=== PATIENT | male | born 1945 | race Caucasian/White ===

== ENCOUNTER 2020-06-14 09:46 | Day surgery (SDC) | payer MEDICARE, BC ==
[2020-06-08 15:39] LABS: CLARITY,URINE CLEAR (Clear); COLOR,URINE YELLOW (Yellow); GLUCOSE, URINE NEGATIVE (Neg); KETONES,URINE NEGATIVE (Neg); LEUKOCYTE ESTERASE ,URINE NEGATIVE (Neg); NITRITES, URINE NEGATIVE (Neg); OCCULT BLOOD,URINE NEGATIVE (Neg); PROTEIN,URINE NEGATIVE (Neg); UROBILINOGEN,URINE 0.2 E.U/dL (0.2-1.0)
[2020-06-08 15:43] LABS: BASOPHILS # (AUTO) 0.1 X10'3 (0-0.2); BASOPHILS % (AUTO) 1.7 % (0-1); EOSINOPHILS # (AUTO) 0.2 X10'3 (0-0.9); EOSINOPHILS % (AUTO) 3.4 % (0-6); LYMPHOCYTES % (AUTO) 13.9 % (21-51); MEAN CORPUSCULAR HEMOGLOBIN 32.3 PG (27.0-31.0); MEAN CORPUSCULAR HGB CONC 33.8 g/dL (33.0-36.5); MEAN CORPUSCULAR VOLUME 95.5 FL (78-98); MEAN PLATELET VOLUME 7.3 FL (7.4-10.4); MONOCYTES # (AUTO) 0.3 X10'3 (0-0.9); MONOCYTES % (AUTO) 4.8 % (2-12); NEUTROPHILS # (AUTO) 5.5 X10'3 (1.8-7.7); NEUTROPHILS % (AUTO) 76.2 % (42-75); PRE OP HEMATOCRIT 42.9 % (42.0-52.0); PRE OP HEMOGLOBIN 14.5 g/dL (14.0-17.9); PRE OP PLATELET COUNT 232 X10'3 (140-440); RED BLOOD COUNT 4.49 X10'6 (4.70-6.10); RED CELL DISTRIBUTION WIDTH 12.9 % (11.5-14.5)
[2020-06-08 15:45] LABS: UA COLLECTION TYPE CLN CATCH MIDSTREAM
[2020-06-08 15:49] LABS: ALBUMIN 3.6 G/DL (3.4-5.0); ALBUMIN/GLOBULIN RATIO 1.1 (1.1-1.5); ALKALINE PHOSPHATASE 109 IU/L (46-116); BLOOD UREA NITROGEN 18 MG/DL (7-18); BUN/CREATININE RATIO 18.9 (5.4-32.0); CALCIUM 8.8 MG/DL (8.5-10.1); CHLORIDE 106 MMOL/L (99-107); CREATININE 0.95 MG/DL (0.60-1.10); PRE OP ALT 42 U/L (30-65); PRE OP ANION GAP 9 (8-16); PRE OP AST 25 U/L (10-37); PRE OP BILIRUB, TOTAL 0.3 MG/DL (0.0-1.0); PRE OP GLUCOSE 183 MG/DL (70-104); PRE OP POTASSIUM 3.9 MMOL/L (3.4-5.1); PRE OP SODIUM 141 MMOL/L (135-145); TOTAL CARBON DIOXIDE 25.9 MMOL/L (24-32); TOTAL PROTEIN 6.9 G/DL (6.4-8.2); eGFR 77 ML/MIN
[2020-06-14] VITALS (13 sets, daily range): BP systolic 116–144; BP diastolic 64–85
[~2020-06-14] VITALS: Ht 177.8 cm; Wt 82.1 kg
[~2020-06-14 09:46] MED LIST: ACET80TA; ADV50250 IH; ALBU18HF2 INH; ALBU8.5H8 INH; ALPR-624 PO; ASPI81TA52 PO; BUDE10.2 INH; D3 PO; FISH OIL PO; LOSA25TA96 PO; MULT-1085 PO; RUTI500T PO; SIMV-42 PO; UBID30CA11 PO; ZOLP5TAB8 PO; ceFAZolin 2gm in dextrose, iso 50 ML IV ONE; famotidine 20mg tablet PO ONE; ringers solution, lacted 1,000 ML IV SCH
[2020-06-14] MEDS ORDERED: BUPIVAcaine/PF 2.5mg/ml (0.25%) 10ml vial ONE (11:57)
[2020-06-14] MEDS ORDERED: dexamethasone sod phosphate 10mg/ml inj ONE (12:27)
[2020-06-14] MEDS ORDERED: glycopyrrolate 0.2mg/ml inj ONE (12:27)
[2020-06-14] MEDS ORDERED: neostigmine methylsulfate 1 MG/ML 10ml vial ONE (12:27)
[2020-06-14] MEDS ORDERED: sevoflurane 250ml liquid IH ONE (12:27)
[2020-06-14] MEDS ORDERED: fentaNYL/PF 50MCG/1 ML 2ML syringe ONE ×2 (12:37→14:29)
[2020-06-14] MEDS ORDERED: midazolam 2 mg/2 ml injection ONE (12:37)
[2020-06-14] MEDS ORDERED: ondansetron/PF 4mg/2ml inj ONE (12:48)
[2020-06-14] MEDS ORDERED: rocuronium 10mg/ml inj IV ONE (12:48)
[2020-06-14] MEDS ORDERED: LIDOcaine 2% (20mg/ml) 5ml vial ONE (12:48)
[2020-06-14] MEDS ORDERED: propofol inj 20 ML IV ONE (12:48)
[2020-06-14] MEDS ORDERED: hydrALAZINE 20mg/ml inj. IV PRN (13:20)
[2020-06-14] MEDS ORDERED: ondansetron/PF 4mg/2ml inj IV PRN (13:20)
[2020-06-14] MEDS ORDERED: morphine 2 MG/ML inj. syringe IV PRN (13:20)
[2020-06-14] MEDS ORDERED: ringers solution, lacted 1,000 ML IV SCH (13:20)
[2020-06-14] MEDS ORDERED: fentaNYL/PF 50MCG/1 ML 2ML syringe IV PRN (13:20)
[2020-06-14] MEDS ORDERED: labetalol 20mg/4ml (5mg/ml) syringe IV PRN (13:20)
--- NOTE | 2020-06-14 14:56 | NUR ---
Received from OR via [facility], accompanied by Anesthesiologist dr. Aceves and report given by Anesthesiologist. Patient is awake, complained of pain, on O2 10L on mask, VSS, 20G on right hand, on surgical bed with 4 rails up, three bandaids on mid abdomen, dressing CDI, will reassess and monitor. Addendum: 06/14/20 at 1502 by Terrance Sampson RN, RN Amended: Links added.
[2020-06-14] MEDS: morphine 4 MG/ML inj SYRINge IV PRN ×2 (15:04→15:25)
[2020-06-14] MEDS: fentaNYL/PF 50MCG/1 ML 2ML syringe IV PRN ×2 (15:19→15:26)
[2020-06-14] MEDS ORDERED: acetaminophen 1,000mg/100ml IV 100 ML IV PRN (15:20)
[2020-06-14] MEDS ORDERED: HYDROmorphone/PF 0.2 MG/ML SYRINGE IV PRN ×2 (15:20)
[2020-06-14] MEDS ORDERED: HYDROcodone/acetaminophen 10/325mg tab PO ONE (15:45)
--- NOTE | 2020-06-14 17:07 | NUR ---
PATIENT VERBALIZED UNDERSTANDING, OPPORTUNITY TO ASK QUESTIONS GIVEN AND PATIENT COMFORTABLE WITH DC. PATIENT AMBULATED TO THE BATHROOM WITH ASSISTANCE, PATIENT STATES HE VOIDED A STREAM OF URINE, BLADDER SCAN PERFORMED X3, NO MORE THAN 46CC OF URINE DETECTED IN BLADDER. PAIN IS UNDER CONTROL, PATIENT IS INFORMED ABOUT PAIN MEDICATION PRESCRIBED FOR HOME. IV 20G TAKEN OUT WITHOUT COMPLICATION FROM RIGHT HAND. PATIENT HAS MET ALL DC CRITERIA FOR DC HOME. I HAVE REVIEWED D/C INSTRUCTIONS WITH PATIENT. TAKEN OUT VIA WHEELCHAIR WHERE PATIENT WAS TAKEN HOME WITH ALL BELONGINGS. PATIENT TOOK ONE BAG OF BELONGINGS. FAMILY GAVE PATIENT TRANSPORT HOME. Addendum: 06/14/20 at 1716 by Terrance Sampson RN, RN Amended: Links added.
== END 2020-06-14 16:49 | disposition home or self-care (01) ==
LOC: PAS 09:46
PROVIDERS: ATTEND Surgery
DX: K40.90 Unilateral inguinal hernia, without obstruction or gangrene, not specified as recurrent (principal); K43.0 Incisional hernia with obstruction, without gangrene; D17.6 Benign lipomatous neoplasm of spermatic cord; J45.909 Unspecified asthma, uncomplicated; E78.5 Hyperlipidemia, unspecified; I10 Essential (primary) hypertension; I25.2 Old myocardial infarction; G43.909 Migraine, unspecified, not intractable, without status migrainosus; F43.10 Post-traumatic stress disorder, unspecified; I25.10 Atherosclerotic heart disease of native coronary artery without angina pectoris; J43.9 Emphysema, unspecified; F41.9 Anxiety disorder, unspecified; F32.9 Major depressive disorder, single episode, unspecified; Z95.2 Presence of prosthetic heart valve; Z85.46 Personal history of malignant neoplasm of prostate; Z95.1 Presence of aortocoronary bypass graft; Z98.890 Other specified postprocedural states; Z91.040 Latex allergy status; Z91.010 Allergy to peanuts; Z91.018 Allergy to other foods; Z91.09 Other allergy status, other than to drugs and biological substances; F12.90 Cannabis use, unspecified, uncomplicated; Z87.891 Personal history of nicotine dependence; Z79.899 Other long term (current) drug therapy; Z79.82 Long term (current) use of aspirin; Z72.89 Other problems related to lifestyle
CPT/HCPCS: 36415; 49650; 49655; 80053; 81003; 82948; 85025; 87635; 93005; C1758; C1781; J1100; J1170; J2001; J2250; J2270; J2405; J2704; J2710; J3010; J3490; J7120; A4215; A4618

== ENCOUNTER 2022-06-12 06:12 | Day surgery (SDC) | payer MEDICARE, BC ==
[2022-06-05 15:10] LABS: BASOPHILS # (AUTO) 0.1 X10'3 (0-0.2); EOSINOPHILS # (AUTO) 0.1 X10'3 (0-0.9); MONOCYTES # (AUTO) 0.5 X10'3 (0-0.9); MONOCYTES % (AUTO) 5.7 % (2-12); RED CELL DISTRIBUTION WIDTH 13.9 % (11.5-14.5)
[2022-06-05 15:12] LABS: BASOPHILS % (AUTO) 0.7 % (0-1); EOSINOPHILS % (AUTO) 1.3 % (0-6); LYMPHOCYTES # (AUTO) 0.9 X10'3 (1.1-4.8); LYMPHOCYTES % (AUTO) 11.5 % (21-51); MEAN CORPUSCULAR HEMOGLOBIN 31.4 PG (27.0-31.0); MEAN CORPUSCULAR HGB CONC 33.4 g/dL (33.0-36.5); MEAN PLATELET VOLUME 6.7 FL (7.4-10.4); NEUTROPHILS # (AUTO) 6.6 X10'3 (1.8-7.7); NEUTROPHILS % (AUTO) 80.8 % (42-75); PRE OP HEMATOCRIT 41.3 % (42.0-52.0); PRE OP HEMOGLOBIN 13.8 g/dL (14.0-17.9); PRE OP PLATELET COUNT 206 X10'3 (140-440)
[2022-06-05 15:27] LABS: ALBUMIN 3.7 G/DL (3.4-5.0); ALBUMIN/GLOBULIN RATIO 1.2 (1.1-1.5); BLOOD UREA NITROGEN 23 MG/DL (7-18); BUN/CREATININE RATIO 22.3 (5.4-32.0); CALCIUM 8.8 MG/DL (8.5-10.1); CHLORIDE 106 MMOL/L (99-107); CREATININE 1.03 MG/DL (0.60-1.10); PRE OP ALT 33 U/L (30-65); PRE OP ANION GAP 7 (8-16); PRE OP AST 28 U/L (10-37); PRE OP BILIRUB, TOTAL 0.6 MG/DL (0.0-1.0); PRE OP GLUCOSE 164 MG/DL (70-104); PRE OP POTASSIUM 4.2 MMOL/L (3.4-5.1); PRE OP SODIUM 140 MMOL/L (135-145); TOTAL PROTEIN 6.7 G/DL (6.4-8.2); eGFR 70 ML/MIN
[2022-06-05 15:38] LABS: ALKALINE PHOSPHATASE 103 IU/L (46-116)
[~2022-06-12] VITALS: Ht 175.3 cm; Wt 83.7 kg
[2022-06-12] VITALS (19 sets, daily range): BP systolic 128–167; BP diastolic 58–109
[~2022-06-12 06:12] MED LIST changes: +ACET325T59 PO; -ACET80TA; -ADV50250 IH; -ALBU18HF2 INH; +ALBU8.5H17 INH; -ALBU8.5H8 INH; -BUDE10.2 INH; +DIPH25CA83 PO; +DOCUMENT DATE & TIME OF BETA-BLOCKER PO ONE; +FLUT16SP2 BOTHNARES; +METO-539 PO; +VENL150C4 PO; +albuterol 2.5 MG/3 ML nebule NEB ONE; -ceFAZolin 2gm in dextrose, iso 50 ML IV ONE; +ceFAZolin inj. 2,000 MG in dextrose 5%-water 100 ML IV ONE
--- NOTE | 2022-06-12 06:20 | NUR ---
PT PREPARED FOR SURGERY. PTS IV STARTED IN RIGHT POSTERIOR FOREARM WITHOUT DIFFICULTY. PT STATES AFTER HIS LAST SURGERY HE HAD AN ALLERGIC REACTION TO THE DRESSING TAPE.
[2022-06-12 06:57] LABS: CLARITY,URINE CLEAR (Clear); COLOR,URINE YELLOW (Yellow); GLUCOSE, URINE NEGATIVE (Neg); KETONES,URINE NEGATIVE (Neg); LEUKOCYTE ESTERASE ,URINE NEGATIVE (Neg); NITRITES, URINE NEGATIVE (Neg); OCCULT BLOOD,URINE NEGATIVE (Neg); PROTEIN,URINE NEGATIVE (Neg); UA COLLECTION TYPE NON-SPECIFIED; UROBILINOGEN,URINE 0.2 E.U/dL (0.2-1.0)
[2022-06-12] MEDS ORDERED: BUPIVAcaine 0.5% inj/PF 30 ML ONE (07:12)
[2022-06-12] MEDS ORDERED: sevoflurane 250ml liquid IH ONE (08:41)
[2022-06-12] MEDS ORDERED: meperidine/PF 25mg/ml syringe IV PRN (08:50)
[2022-06-12] MEDS ORDERED: hydrALAZINE 20mg/ml inj. IV PRN (08:50)
[2022-06-12] MEDS ORDERED: ringers solution, lacted 1,000 ML IV SCH (08:50)
[2022-06-12] MEDS ORDERED: proCHLORperazine 10 MG/2 ml inj IV PRN (08:50)
[2022-06-12] MEDS ORDERED: acetaminophen 1,000mg/100ml IV 100 ML IV PRN (08:50)
[2022-06-12] MEDS ORDERED: morphine 2 MG/ML inj. syringe IV PRN (08:50)
[2022-06-12] MEDS ORDERED: morphine 4 MG/ML inj SYRINge IV PRN (08:50)
[2022-06-12] MEDS ORDERED: ondansetron/PF 4mg/2ml inj IV PRN (08:50)
[2022-06-12] MEDS ORDERED: HYDROmorphone/PF 0.2 MG/ML SYRINGE IV PRN (08:50)
[2022-06-12] MEDS ORDERED: labetalol 20mg/4ml (5mg/ml) syringe IV PRN (08:50)
[2022-06-12] MEDS ORDERED: midazolam 1 mg/ML 2ml injection ONE (08:52)
[2022-06-12] MEDS ORDERED: fentaNYL /PF 50mcg/ml 5ml ampule ONE (09:22)
[2022-06-12] MEDS ORDERED: dexamethasone sod phosphate 4mg/ml inj. ONE (09:24)
[2022-06-12] MEDS ORDERED: rocuronium 10mg/ml inj IV ONE (09:24)
[2022-06-12] MEDS ORDERED: ondansetron/PF 4mg/2ml inj ONE (09:24)
[2022-06-12] MEDS ORDERED: propofol inj 20 ML IV ONE (09:24)
[2022-06-12] MEDS ORDERED: LIDOcaine 2% (20mg/ml) 5ml vial ONE (09:24)
[2022-06-12] MEDS ORDERED: BUPIVAcaine 0.5% inj/PF 30 ml vial IJ ONE (09:38)
[2022-06-12] MEDS ORDERED: ePHEDrine 50MG/ML INJ. ONE (10:36)
[2022-06-12] MEDS ORDERED: morphine 4 MG/ML inj SYRINge ONE (10:45)
[2022-06-12] MEDS ORDERED: ketorolac trometh. 30mg/ml inj. ONE (10:47)
[2022-06-12] MEDS ORDERED: neostigmine methylsulfate 1 MG/ML 10ml vial ONE (10:48)
[2022-06-12] MEDS ORDERED: glycopyrrolate 0.2mg/ml inj ONE (10:48)
--- NOTE | 2022-06-12 10:58 | NUR ---
Received from OR via [facility], accompanied by Anesthesiologist DR WEI and report given by Anesthesiologist AND GROUP FITNESS INSTRUCTOR. PT DROWSY, DENIES PAIN. ABDOMEN W/4 LAP SITES AND 5 STAB SITES W/DERMABOND CDI. Addendum: 06/12/22 at 1129 by Rahel Busby RN Amended: Links added.
[2022-06-12] MEDS: HYDROmorphone/PF 0.2 MG/ML SYRINGE IV PRN ×3 (11:39→12:43)
[2022-06-12] MEDS ORDERED: HYDROcodone/acetaminophen 10/325mg tab PO ONE (12:15)
--- NOTE | 2022-06-12 14:28 | NUR ---
PT BLADDER SCANNED FOR 198 ML URINE AT APPROX 13;00, PT UP AND AMBULATED SEVERAL TIMES IN PACU AREA. PT WAS ABLE TO VOID 220 ML URINE, REPEAT BLADDER SCAN OF LESS THAN 50 ML. PT STATES HE IS MUCH MORE COMFORTABLE AND PAIN IS TOLERABLE. D/C INSTRUCTIONS GIVEN AND GONE OVER W/PT WHO VERBALIZED UNDERSTANDING. PT D/CD TO HOME VIA W/C TO PRIVATE VEHICLE W/O INCIDENT. Addendum: 06/12/22 at 1549 by Rahel Busby RN Amended: Links added.
== END 2022-06-12 14:28 | disposition home or self-care (01) ==
LOC: PAS 06:12
PROVIDERS: ATTEND Surgery
DX: K43.0 Incisional hernia with obstruction, without gangrene (principal); E78.5 Hyperlipidemia, unspecified; I10 Essential (primary) hypertension; I25.2 Old myocardial infarction; J43.9 Emphysema, unspecified; F43.10 Post-traumatic stress disorder, unspecified; G43.909 Migraine, unspecified, not intractable, without status migrainosus; F41.9 Anxiety disorder, unspecified; F32.A Depression, unspecified; I48.91 Unspecified atrial fibrillation; Z95.2 Presence of prosthetic heart valve; Z85.46 Personal history of malignant neoplasm of prostate; Z95.1 Presence of aortocoronary bypass graft; Z98.890 Other specified postprocedural states; Z79.82 Long term (current) use of aspirin; Z79.899 Other long term (current) drug therapy; Z91.010 Allergy to peanuts; Z91.018 Allergy to other foods; Z91.040 Latex allergy status; Z88.8 Allergy status to other drugs, medicaments and biological substances; Z91.09 Other allergy status, other than to drugs and biological substances; Z72.89 Other problems related to lifestyle; Z87.891 Personal history of nicotine dependence
CPT/HCPCS: 36415; 49594; 80053; 81003; 82948; 85025; 93005; C1781; J0131; J0690; J1100; J1170; J1885; J2250; J2270; J2405; J2704; J2710; J3010; J3490; J7030; J7060; J7120; S0020; Z7506; Z7508; Z7512; A4615; A4618; A7000